=== PATIENT | male | born 1965 | race Caucasian/White ===

== ENCOUNTER 2020-01-20 07:50 | Outpatient (CLI) | payer OTHER, SELFPAY ==
--- NOTE | 2020-01-27 10:16 | WPDPFTINT ---
PFT Interpretation PFT Interpretation: This PFT met all criteria for ATS standards and reproducibility FEV/FVC post bronchodilator 82% of predicted FEV1 108% of predicted FVC 94% of predicted TLC 90% of predicted RV 69% RV/TLC 26% DLCO 104% when adjusted for alveolar volume but not adjusted for hemoglobin Flow volume loops were normal Impression: This is a normal PFT. Clinical correlation is advised.
== END 2020-01-20 07:51 | disposition home or self-care (01) ==
PROVIDERS: PCP Internal Medicine; Visit Provider Internal Medicine Pulmonary Disease
DX: D86.9 Sarcoidosis, unspecified (principal)
CPT/HCPCS: 94060; 94726; 94729

== ENCOUNTER 2021-01-06 12:33 | Outpatient (CLI) | payer OTHER, SELFPAY ==
--- NOTE | 2021-01-06 16:12 | WPDPFTINT ---
PFT Procedure Performed PFT Procedure Performed Spirometry with Pre/Post Bronchodilator Plethysmography (Lung Vol) Diffusing Cap (DLCO) Flow Vol Loop PFT Interpretation This is a pulmonary function test with pre and post-bronchodilator spirometry, plethysmography and diffusing capacity. The test was performed and results interpreted in accordance with the 2019 and 2005 ATS/ERS Task Force guidelines respectively using the Global Lung Function Initiative-2012 reference equations. Patient demonstrated good effort and cooperation. Reproducibility criteria were met. The quality of the pre bronchodilator spirometry maneuver was Grade A and post bronchodilator spirometry maneuver was Grade A. Findings: Spirometry: the contour of the inspiratory and expiratory flow tracing are normal. The pre bronchodilator FVC is 4.50 L, 88% predicted. The pre bronchodilator FEV1 is 3.65 L, 92% predicted. The FEV1: FVC ratio is 81%. The post bronchodilator FVC is 4.67 L, representing a 4% increase. The post bronchodilator FEV1 is 3.96 L, representing 8% increase. Plethysmography: The total lung capacity is 6.01 L, 81% predicted. The functional residual capacity is 1.66 L, 43% predicted. The residual volume is 1.16 L, 51% predicted. Diffusing capacity: The absolute diffusion capacity is 31.4, 104% predicted. The diffusing capacity corrected for alveolar volume is 5.12, 120% predicted. In comparison to previous pulmonary function test performed on 01/20/2020 the FVC is unchanged from 4.76 L to 4.67 L. The post bronchodilator FEV1 is unchanged from 3.88 L to 3.96 L. the total lung capacity is unchanged from 6.50 L to 6.01 L. The functional residual capacity is decreased from 2.88 L to 1.66 L. The residual volume is decreased from 1.67 L to 1.16 L. The absolute diffusion capacity is unchanged from 28.7 to 31.4. The diffusing capacity corrected for alveolar volume is unchanged from 5.23 to 5.12. Impression: The spirometry is normal without evidence of an obstructive abnormality. There is no significant improvement after inhaling a single dose of albuterol. the total lung capacity is normal with a decreased functional residual capacity and residual volume. This is an abnormal but nonspecific lung volume pattern. The diffusing capacity is normal. When compared to the prior pulmonary function test on 01/20/2020 there has been a greater than anticipated time dependent decrease in functional residual capacity and residual volume with no significant change in the post bronchodilator FVC, post bronchodilator FEV1, total lung capacity, absolute diffusion capacity, and diffusing capacity corrected for alveolar volume. Clinical correlation is recommended. There are no prior studies for comparison
== END 2021-01-06 12:34 | disposition home or self-care (01) ==
PROVIDERS: PCP Internal Medicine; Visit Provider Nurse Practitioner
DX: D86.9 Sarcoidosis, unspecified (principal)
CPT/HCPCS: 94060; 94726; 94729